=== PATIENT | male | born 1950 | race Caucasian/White ===

== ENCOUNTER 2020-01-10 12:57 | Inpatient (IN) | payer MEDICARE, OTHER ==
[~2020-01-10] VITALS: Ht 172.7 cm; Wt 58.7 kg
[2020-01-10 17:05] VITALS: BP 112/72
[2020-01-10] MEDS ORDERED: CHOL10002 PO (17:57)
[2020-01-10] MEDS ORDERED: PYRI200T10 PO (17:57)
[2020-01-10] MEDS ORDERED: DONE10TA44 PO (17:57)
[2020-01-10] MEDS ORDERED: ATOR80TA PO (17:57)
[2020-01-10] MEDS ORDERED: EZET10TA15 PO (17:57)
[2020-01-10] MEDS ORDERED: ACET-73 PO (17:57)
[2020-01-10] MEDS ORDERED: POTA10CA43 PO (17:57)
[2020-01-10] MEDS ORDERED: MELA5TAB20 PO (17:57)
[2020-01-10] MEDS ORDERED: LOPE-206 PO (17:57)
[2020-01-10] MEDS ORDERED: ASPI-605 PO (17:57)
[2020-01-10] MEDS ORDERED: FESO4TAB PO (17:57)
[2020-01-10] MEDS ORDERED: DOXA4TAB3 PO (17:57)
[2020-01-10] MEDS ORDERED: ASCO500T10 PO (17:57)
[2020-01-10] MEDS ORDERED: HYDR30CR99 RC (17:57)
[2020-01-10] MEDS ORDERED: SACU1TAB4 PO (17:57)
[2020-01-10] MEDS ORDERED: PRIM250T32 PO ×2 (17:57)
[2020-01-10] MEDS ORDERED: CYAN-51 PO (17:57)
[2020-01-10] MEDS ORDERED: FURO20TA4 PO (17:57)
[2020-01-10] MEDS ORDERED: MELA3TAB41 PO (17:57)
[2020-01-10] MEDS ORDERED: FAMO-132 PO (17:57)
[2020-01-10] MEDS ORDERED: FOLI0.4T2 PO (17:57)
[2020-01-10] MEDS ORDERED: MEMANTINE HCL PO (17:57)
[2020-01-10] MEDS ORDERED: CARV12.52 PO (17:57)
[2020-01-10] MEDS ORDERED: AMLO10TA7 PO (17:57)
[2020-01-10] MEDS ORDERED: CLOP75TA33 PO (17:57)
[2020-01-10] MEDS ORDERED: PYRI50CA PO (17:57)
[2020-01-10] MEDS ORDERED: NABU750T2 PO (17:57)
[2020-01-10] MEDS ORDERED: SERT50TA PO (18:06)
[2020-01-10 20:34] VITALS: BP 130/72
[2020-01-10] MEDS: DONEPEZIL 10 MG TABLET PO SCH (21:35)
[2020-01-10] MEDS: ACETAMINOPHEN ES 500 MG TABLET PO PRN (21:35)
[2020-01-10] MEDS: AMLODIPINE 10 MG TABLET PO SCH (21:36)
[2020-01-10] MEDS: PRIMIDONE 250 MG TABLET PO SCH (21:39)
[2020-01-11] MEDS: ACETAMINOPHEN ES 500 MG TABLET PO PRN ×3 (05:28→21:34)
[2020-01-11 06:09] VITALS: BP 136/70
[2020-01-11] MEDS: PANTOPRAZOLE SODIUM 40 MG TABLET.DR PO SCH (06:49)
[2020-01-11 06:50] LABS: BASOPHILS % (AUTO) 0.4 % (0.0-2.0); EOSINOPHILS # (AUTO) 0.1 K/uL (0.0-0.7); EOSINOPHILS % (AUTO) 1.5 % (0.0-7.0); HEMOGLOBIN 9.7 g/dL (12.5-16.3); LYMPHOCYTES # (AUTO) 1.2 K/uL (20.0-40.0); LYMPHOCYTES % (AUTO) 15.7 % (20.5-51.5); MEAN CORPUSCULAR HEMOGLOBIN 32.7 uug (23.8-33.4); MEAN CORPUSCULAR HGB CONC 35 g/dL (32.5-36.3); MEAN CORPUSCULAR VOLUME 94.5 fL (73.0-96.2); MONOCYTES # (AUTO) 1.1 K/uL (2.0-10.0); MONOCYTES % (AUTO) 13.8 % (0.0-11.0); NEUTROPHILS # (AUTO) 5.4 K/uL (1.8-8.9); NEUTROPHILS % (AUTO) 68.6 % (38.5-71.5); PLATELET COUNT (AUTO) 192 K/uL (152-348); RED BLOOD CELL COUNT(AUTO) 2.97 MIL/uL (4.06-5.63); WHITE BLOOD COUNT (AUTO) 7.9 K/uL (3.6-10.2)
--- NOTE | 2020-01-11 06:56 | NUR ---
Received patient lying in bed and assisted patient to the restroom with walker. Ax0x2, nonverbal but follows commands. Patient has a communication book, is able to point to what he wants. no signs and symptoms of distress noted, no SOB noted, vitals signs WNL, afebrile. on RA oxygen saturation @96% Patient had BM x3, voided greater than 700 with urinal, and x2 incontinent pads. skin intact, surgical dressing changed, no drainage noted, picture taken and placed in chart. Spoke to his sister Maite, wanted to know which room he was in to send some things over, connected Maite to patient and she spoke to patient for a couple minutes. all needs attended to, patient kept clean dry and comfortable. all de medications administered and tolerated well, no aspiration precaution noted, take pills whole. Administered Tylenol for pain, noticed facial grimace, unable to determine how bad the pain is. Administered, effective, patient slept through the night with no complaints or sudden changes in status. Offered patient snacks and fluid, well hydrated through the night. Safety measure in place, bed locked and lowered, bed railsx2, bed alarm on, and call light and all personal items within patient reach. Will endorse report to next shift according, continue with plan of care.
[2020-01-11 06:59] LABS: BILIRUBIN,TOTAL 0.6 mg/dL (0.2-1.0); CREATININE 0.7 mg/dL (0.6-1.3); POTASSIUM 3.6 mmol/L (3.5-5.1); TOTAL PROTEIN, SERUM 6.2 g/dL (6.4-8.2)
[2020-01-11 08:00] VITALS: BP 107/60
[2020-01-11] MEDS: SERTRALINE HCL 50 MG TABLET PO SCH (10:21)
[2020-01-11] MEDS: ASCORBIC ACID 500 MG TABLET PO SCH ×2 (10:22→16:39)
[2020-01-11] MEDS: FUROSEMIDE 20 MG TABLET PO SCH (10:23)
[2020-01-11] MEDS: POTASSIUM CHLORIDE 8 MEQ TAB.PRT.SR PO SCH (10:23)
[2020-01-11] MEDS: CYANOCOBALAMIN 1,000 MCG TABLET PO SCH (10:23)
[2020-01-11] MEDS: ASPIRIN EC 81 MG TABLET.DR PO SCH (10:23)
[2020-01-11] MEDS: OXYBUTYNIN CHLORIDE 5 MG TABLET PO SCH ×2 (10:24→16:39)
[2020-01-11] MEDS: CHOLECALCIFEROL 1,000 UNIT TABLET PO SCH (10:24)
[2020-01-11] MEDS: FAMOTIDINE 20 MG TABLET PO SCH ×2 (10:25→16:39)
[2020-01-11] MEDS: CARVEDILOL 12.5 MG TABLET PO SCH ×2 (10:25→16:39)
[2020-01-11] MEDS: CLOPIDOGREL 75 MG TABLET PO SCH (10:25)
[2020-01-11] MEDS: PRIMIDONE 250 MG TABLET PO SCH ×2 (10:26→21:31)
[2020-01-11] MEDS: EZETIMIBE 10 MG TABLET PO SCH (10:26)
[2020-01-11] MEDS: FOLIC ACID 1 MG TABLET PO SCH (10:27)
[2020-01-11] MEDS: MEMANTINE HCL 10 MG TABLET PO SCH ×2 (10:27→16:39)
[2020-01-11] MEDS: HYDROCORTISONE 2.5 % RECTAL CREAM 28.35 GM TUBE RC SCH ×3 (10:28→16:40)
[2020-01-11] MEDS: PYRIDOXINE HCL 100 MG TABLET PO SCH (10:35)
--- NOTE | 2020-01-11 12:32 | NUR ---
LEFT WITH HIS SISTER AND HIS PRISON ADMINISTRATORS TO SEE IF WE CAN HAVE SOME ONE BRING IN THE ENTRESTO AND NAMBUTONE PER PHARMACY THESE MEDS ARE NONFORMULARY
[2020-01-11 16:23] VITALS: BP 115/64
[2020-01-11 19:49] VITALS: BP 123/61
[2020-01-11] MEDS: DONEPEZIL 10 MG TABLET PO SCH (21:31)
[2020-01-11] MEDS: ATORVASTATIN 40 MG TABLET PO SCH (21:31)
[2020-01-11] MEDS: AMLODIPINE 10 MG TABLET PO SCH (21:32)
[2020-01-12] MEDS: LORAZEPAM 0.5 MG TABLET PO PRN ×2 (02:24→08:00)
[2020-01-12 04:42] VITALS: BP 140/82
--- NOTE | 2020-01-12 05:37 | NUR ---
Received patient laying in bed. Ax0x2, nonverbal, follows commands. No signs and symptoms of distress noted, no SOB noted, vitals signs WNL, afebrile. on RA oxygen saturation @95% Patient keep getting out of bed multiple times through the night to use the restroom. Provided prune juice to relieve constipation. Spoke to his sister Maite, wanted to know how patient was doing. All needs attended to, patient kept clean dry and comfortable. all due medications administered and tolerated well, take pills whole. Administered Tylenol for pain, noticed facial grimace, unable to determine how bad the pain is. Administered, effective, patient slept poorly through the night got up out of bed every 20 min, administered Ativan PRN, effective for short period of time. No sudden changes in status. Offered patient snacks and fluid, well hydrated through the night. Safety measure in place, bed locked and lowered, bed railsx2, bed alarm on, and call light and all personal items within patient reach. Will endorse report to next shift according, continue with plan of care.
[2020-01-12] MEDS: PANTOPRAZOLE SODIUM 40 MG TABLET.DR PO SCH (06:16)
[2020-01-12 08:00] VITALS: BP 135/70
[2020-01-12] MEDS: ACETAMINOPHEN ES 500 MG TABLET PO PRN ×2 (08:00→13:43)
[2020-01-12] MEDS: FUROSEMIDE 20 MG TABLET PO SCH (08:00)
[2020-01-12] MEDS: CHOLECALCIFEROL 1,000 UNIT TABLET PO SCH (08:01)
[2020-01-12] MEDS: EZETIMIBE 10 MG TABLET PO SCH (08:05)
[2020-01-12] MEDS: SERTRALINE HCL 50 MG TABLET PO SCH (08:05)
[2020-01-12] MEDS: FOLIC ACID 1 MG TABLET PO SCH (08:05)
[2020-01-12] MEDS: ASCORBIC ACID 500 MG TABLET PO SCH ×2 (08:05→17:01)
[2020-01-12] MEDS: MEMANTINE HCL 10 MG TABLET PO SCH ×2 (08:05→17:02)
[2020-01-12] MEDS: OXYBUTYNIN CHLORIDE 5 MG TABLET PO SCH ×2 (08:06→17:02)
[2020-01-12] MEDS: POTASSIUM CHLORIDE 8 MEQ TAB.PRT.SR PO SCH (08:06)
[2020-01-12] MEDS: CLOPIDOGREL 75 MG TABLET PO SCH (08:06)
[2020-01-12] MEDS: CARVEDILOL 12.5 MG TABLET PO SCH ×2 (08:07→17:02)
[2020-01-12] MEDS: FAMOTIDINE 20 MG TABLET PO SCH ×2 (08:07→17:02)
[2020-01-12] MEDS: ASPIRIN EC 81 MG TABLET.DR PO SCH (08:07)
[2020-01-12] MEDS: CYANOCOBALAMIN 1,000 MCG TABLET PO SCH (08:08)
[2020-01-12] MEDS: PYRIDOXINE HCL 100 MG TABLET PO SCH (08:08)
[2020-01-12] MEDS: PRIMIDONE 250 MG TABLET PO SCH ×2 (08:11→20:44)
[2020-01-12] MEDS: HYDROCORTISONE 2.5 % RECTAL CREAM 28.35 GM TUBE RC SCH ×3 (08:13→17:02)
--- NOTE | 2020-01-12 10:00 | NUR ---
JUST BACK FROM THERAPY VERY IMPULSIVE. WILL NOT STAY IN THE BED OR CHAIR. WANTS TO GO TO THE BATHROOM APPROX Q30 MIN. LIES IN BED TRIES TO DIG THE FECES OUT WHEN NOT GOING TO THE TOILET. GETS OOB ON HIS OWN HAS TO BE WATCHED CLOSELY. BED ALARM ACTIVATED
--- NOTE | 2020-01-12 14:39 | NUR ---
SPOKE WITH FANNY AT [facility] WHERE HE LIVES SHE SAYS SHE WILL HAVE THE NURSE CALL REGARDING DELIVERING THE MEDICATIONS NEEDED FROM HOME TO THE HOSPITAL. I SPOKE WITH THE NURSE CHASE AND SHE SAYS SHE WILL HAVE SOMEONE FROM THE HOME WHERE HE LIVES MAKE ARRANGEMENTS FOR THE MEDS TO BE DROPPED OFF HERE.
[2020-01-12 15:56] VITALS: BP 131/70
--- NOTE | 2020-01-12 19:54 | NUR ---
Patient received in bed, very drowsy and tired. No sign and symptoms of distress noted. Safety measure in place, call light and personal items within patient reach. SCD pumps on, BLE with pillow. Continue to monitor through the night
[2020-01-12 20:19] VITALS: BP 117/60
[2020-01-12] MEDS: ATORVASTATIN 40 MG TABLET PO SCH (20:43)
[2020-01-12] MEDS: AMLODIPINE 10 MG TABLET PO SCH (20:43)
[2020-01-12] MEDS: DONEPEZIL 10 MG TABLET PO SCH (20:43)
--- NOTE | 2020-01-13 05:31 | NUR ---
no signs and symptoms of distress noted, no SOB noted, vitals signs WNL, afebrile. on RA oxygen saturation @96% Patient BM multiple times in small amounts. Constantly getting out of bed to use the restroom. Kept clean dry and comfortable. Skin intact, surgical dressing changed, no drainage noted. Spoke to his sister Maite, wanted to kfollow up with the medications that the pharmacy received. All needs attended to. all dUe medications administered and tolerated well, no aspiration precaution noted, take pills whole. Slept for a couple hours with no complaints or sudden changes in status. Offered patient snacks and fluid, well hydrated through the night. Safety measure in place, bed locked and lowered, bed railsx2, bed alarm on, and call light and all personal items within patient reach. Will endorse report to next shift according, continue with plan of care.
[2020-01-13 05:32] VITALS: BP 132/75
[2020-01-13] MEDS: PANTOPRAZOLE SODIUM 40 MG TABLET.DR PO SCH (06:00)
[2020-01-13] MEDS: ASPIRIN EC 81 MG TABLET.DR PO SCH (08:20)
[2020-01-13] MEDS: CLOPIDOGREL 75 MG TABLET PO SCH (08:20)
[2020-01-13] MEDS: CHOLECALCIFEROL 1,000 UNIT TABLET PO SCH (08:20)
[2020-01-13] MEDS: FAMOTIDINE 20 MG TABLET PO SCH ×2 (08:20→17:24)
[2020-01-13] MEDS: FOLIC ACID 1 MG TABLET PO SCH (08:20)
[2020-01-13] MEDS: OXYBUTYNIN CHLORIDE 5 MG TABLET PO SCH ×2 (08:20→17:24)
[2020-01-13] MEDS: ASCORBIC ACID 500 MG TABLET PO SCH ×2 (08:21→17:24)
[2020-01-13] MEDS: SERTRALINE HCL 50 MG TABLET PO SCH (08:21)
[2020-01-13] MEDS: MEMANTINE HCL 10 MG TABLET PO SCH ×2 (08:21→17:24)
[2020-01-13] MEDS: CARVEDILOL 12.5 MG TABLET PO SCH ×2 (08:21→17:28)
[2020-01-13] MEDS: CYANOCOBALAMIN 1,000 MCG TABLET PO SCH (08:24)
[2020-01-13] MEDS: PRIMIDONE 250 MG TABLET PO SCH ×2 (08:25→20:18)
[2020-01-13] MEDS: EZETIMIBE 10 MG TABLET PO SCH (08:25)
[2020-01-13] MEDS: PYRIDOXINE HCL 100 MG TABLET PO SCH (08:26)
[2020-01-13] MEDS: POTASSIUM CHLORIDE 8 MEQ TAB.PRT.SR PO SCH (08:26)
[2020-01-13] MEDS: HYDROCORTISONE 2.5 % RECTAL CREAM 28.35 GM TUBE RC SCH ×3 (08:29→17:29)
[2020-01-13] MEDS: FUROSEMIDE 20 MG TABLET PO SCH (08:33)
[2020-01-13 08:51] VITALS: BP 135/71
[2020-01-13] MEDS: ACETAMINOPHEN ES 500 MG TABLET PO PRN (09:55)
--- NOTE | 2020-01-13 14:03 | NUR ---
INDIVIDUALIZED PLAN OF CARE
[2020-01-13 16:05] VITALS: BP 143/59
--- NOTE | 2020-01-13 18:11 | NUR ---
Patient alert, able to follow commands,non verbal , able to communicate through gestures and pictures, no distress noted , in room air ,compliant with medications. constantly getting out of bed with assist to use bathroom for BM and voiding, able to use walker with assist. Denies pain or no facial grimaces of discomfort, dressing change on left hip , gary intact, no drainage noted, no s/s of infection, keep area clean and dry. Safety measures in place.Reinforced teaching to use call light for assistance. Participated with therapy tolerated well .All needs attended and anticipated.
--- NOTE | 2020-01-13 19:45 | NUR ---
Sleeping comfortably during initial rounds. No s/s of respiratory distress. Safety measures and fall precaution maintained. Continue care as planned
--- NOTE | 2020-01-13 19:55 | NUR ---
Awake, up, and trying to ambulate independently to the bathroom. Non verbal but able to make needs known thru body language/gestures. Assisted to the bathroom. Had 1 BM. Good adriano care/skin care rendered. Safely assisted back to bed. No complaint presented.
[2020-01-13 20:00] VITALS: BP 114/57
[2020-01-13] MEDS: DONEPEZIL 10 MG TABLET PO SCH (20:18)
[2020-01-13] MEDS: ATORVASTATIN 40 MG TABLET PO SCH (20:18)
[2020-01-13] MEDS: AMLODIPINE 10 MG TABLET PO SCH (20:19)
[2020-01-13] MEDS: LORAZEPAM 0.5 MG TABLET PO PRN (21:24)
[2020-01-14 04:00] VITALS: BP 121/71
[2020-01-14] MEDS: PANTOPRAZOLE SODIUM 40 MG TABLET.DR PO SCH (06:11)
--- NOTE | 2020-01-14 06:24 | NUR ---
Shift End Report: Slept good after Ativan given as ordered and needed. No further complaint presented. No fall/injury. All need attended and met. No significant event reported all night. Continue current rehab plan of care. VS stable.
[2020-01-14 08:00] VITALS: BP 131/73
[2020-01-14] MEDS: OXYBUTYNIN CHLORIDE 5 MG TABLET PO SCH ×2 (08:43→16:30)
[2020-01-14] MEDS: SERTRALINE HCL 50 MG TABLET PO SCH (08:44)
[2020-01-14] MEDS: CYANOCOBALAMIN 1,000 MCG TABLET PO SCH (08:44)
[2020-01-14] MEDS: POTASSIUM CHLORIDE 8 MEQ TAB.PRT.SR PO SCH (08:45)
[2020-01-14] MEDS: FAMOTIDINE 20 MG TABLET PO SCH ×2 (08:45→16:30)
[2020-01-14] MEDS: CHOLECALCIFEROL 1,000 UNIT TABLET PO SCH (08:45)
[2020-01-14] MEDS: CLOPIDOGREL 75 MG TABLET PO SCH (08:46)
[2020-01-14] MEDS: ASCORBIC ACID 500 MG TABLET PO SCH ×2 (08:46→16:31)
[2020-01-14] MEDS: PRIMIDONE 250 MG TABLET PO SCH ×2 (08:46→20:52)
[2020-01-14] MEDS: EZETIMIBE 10 MG TABLET PO SCH (08:46)
[2020-01-14] MEDS: ASPIRIN EC 81 MG TABLET.DR PO SCH (08:47)
[2020-01-14] MEDS: PYRIDOXINE HCL 100 MG TABLET PO SCH (08:47)
[2020-01-14] MEDS: FOLIC ACID 1 MG TABLET PO SCH (08:47)
[2020-01-14] MEDS: MEMANTINE HCL 10 MG TABLET PO SCH ×2 (08:47→16:31)
[2020-01-14] MEDS: FUROSEMIDE 20 MG TABLET PO SCH (08:47)
[2020-01-14] MEDS: HYDROCORTISONE 2.5 % RECTAL CREAM 28.35 GM TUBE RC SCH ×3 (08:48→16:32)
[2020-01-14] MEDS: CARVEDILOL 12.5 MG TABLET PO SCH ×3 (09:25→16:34)
[2020-01-14] MEDS: NABUMETONE 500 MG PO SCH (10:11)
[2020-01-14] MEDS: ENTRESTO PO SCH ×2 (10:11→16:31)
[2020-01-14 14:06] VITALS: BP 107/57
--- NOTE | 2020-01-14 17:27 | NUR ---
patient is alert, oriented x3, no sob, resp even nonlabored, skin warm and dry to touch, no distress noted, noted with multiple loose watery BMs, per dr carter continue to monitor, morning dose of coreg is administered, however evening dose returned to pexis. pharmacist jason made aware about dose returned and problem in pexis for that medication drawer.
--- NOTE | 2020-01-14 19:21 | NUR ---
PATIENT IS IN HIS ROOM, IN HIS BED, NO DISTRESS NOTED, ENDORSED ACCORDINGLY
[2020-01-14 20:05] VITALS: BP 105/57
[2020-01-14] MEDS: ATORVASTATIN 40 MG TABLET PO SCH (20:52)
[2020-01-14] MEDS: ACETAMINOPHEN ES 500 MG TABLET PO PRN (20:52)
[2020-01-14] MEDS: AMLODIPINE 10 MG TABLET PO SCH (20:53)
[2020-01-14] MEDS: DONEPEZIL 10 MG TABLET PO SCH (20:54)
--- NOTE | 2020-01-15 04:54 | NUR ---
no signs and symptoms of distress noted, no SOB noted, vitals signs WNL, Constantly getting out of bed to use the restroom. Kept clean dry and comfortable. Skin intact, surgical dressing changed, no drainage noted. Family dropped off items for patients, picked it up from the lobby and brought to patients room. All needs attended to. All due medications administered and tolerated well. Offered patient snacks and fluid, well hydrated through the night. Safety measure in place, bed locked and lowered, bed railsx2, bed alarm on, and call light and all personal items within patient reach. Will endorse report to next shift according, continue with plan of care.
[2020-01-15] MEDS: PANTOPRAZOLE SODIUM 40 MG TABLET.DR PO SCH (06:05)
[2020-01-15 06:18] VITALS: BP 132/72
[2020-01-15 07:53] VITALS: BP 130/75
[2020-01-15] MEDS: EZETIMIBE 10 MG TABLET PO SCH (09:06)
[2020-01-15] MEDS: POTASSIUM CHLORIDE 8 MEQ TAB.PRT.SR PO SCH (09:06)
[2020-01-15] MEDS: CHOLECALCIFEROL 1,000 UNIT TABLET PO SCH (09:06)
[2020-01-15] MEDS: OXYBUTYNIN CHLORIDE 5 MG TABLET PO SCH ×2 (09:07→16:48)
[2020-01-15] MEDS: SERTRALINE HCL 50 MG TABLET PO SCH (09:07)
[2020-01-15] MEDS: FOLIC ACID 1 MG TABLET PO SCH (09:07)
[2020-01-15] MEDS: ASPIRIN EC 81 MG TABLET.DR PO SCH (09:07)
[2020-01-15] MEDS: MEMANTINE HCL 10 MG TABLET PO SCH ×2 (09:07→16:48)
[2020-01-15] MEDS: CYANOCOBALAMIN 1,000 MCG TABLET PO SCH (09:07)
[2020-01-15] MEDS: FAMOTIDINE 20 MG TABLET PO SCH ×2 (09:08→16:48)
[2020-01-15] MEDS: ASCORBIC ACID 500 MG TABLET PO SCH ×2 (09:08→16:48)
[2020-01-15] MEDS: CLOPIDOGREL 75 MG TABLET PO SCH (09:08)
[2020-01-15] MEDS: PRIMIDONE 250 MG TABLET PO SCH ×2 (09:13→20:48)
[2020-01-15] MEDS: ENTRESTO PO SCH ×2 (09:14→16:48)
[2020-01-15] MEDS: FUROSEMIDE 20 MG TABLET PO SCH (09:14)
[2020-01-15] MEDS: CARVEDILOL 12.5 MG TABLET PO SCH ×2 (09:14→16:48)
[2020-01-15] MEDS: NABUMETONE 500 MG PO SCH (09:14)
[2020-01-15] MEDS: PYRIDOXINE HCL 100 MG TABLET PO SCH (09:14)
[2020-01-15] MEDS: HYDROCORTISONE 2.5 % RECTAL CREAM 28.35 GM TUBE RC SCH ×3 (09:15→16:50)
--- NOTE | 2020-01-15 10:30 | NUR ---
Received patient in room and awake; Patient is AAO X1-2, able to communicate with gestures and picutres. NO acute distress noted. NO complains of pain. Vital signs stable for patient. All due meds administered as ordered and scheduled and tolerated well. Patient on PT/OT therapy. Ambulatory with a walker. BRP. Patient noted trying to go to bathroom by self, reminded patient to call for help. Bed alarm on for safety. Needs attended and met, safety measures in place, call light left within easy reach and will continue with care.
--- NOTE | 2020-01-15 13:15 | NUR ---
Dressing on the Left hip dry and intact. Skin noted with discoloration. No c/o pain on site. will continue to monitor.
[2020-01-15 16:08] VITALS: BP 101/64
--- NOTE | 2020-01-15 19:15 | NUR ---
Patient in bed and doing activities at this moment. NO SOB or any acute distress noted. Due evening meds administered and tolerated. Patient is with min assist for adls and care but needs constant monitoring. All other needs attended, safety measures in place, bed alarm on at all times, call light left at bed side and will continue with care.
[2020-01-15 19:47] VITALS: BP 126/73
[2020-01-15] MEDS: AMLODIPINE 10 MG TABLET PO SCH (20:48)
[2020-01-15] MEDS: DONEPEZIL 10 MG TABLET PO SCH (20:48)
[2020-01-15] MEDS: ACETAMINOPHEN ES 500 MG TABLET PO PRN (20:48)
[2020-01-15] MEDS: ATORVASTATIN 40 MG TABLET PO SCH (20:49)
[2020-01-16 04:40] VITALS: BP 127/69
--- NOTE | 2020-01-16 05:29 | NUR ---
Patient recieved in room doing activities in bed. No signs and symptoms of distress noted, no SOB noted, vitals signs WNL. Used the bathroom multiple times throughout the night. Kept clean dry and comfortable. Skin intact, surgical dressing changed, no drainage noted. All needs attended to. All due medications administered and tolerated well. Offered patient snacks and fluid, well hydrated through the night. Safety measure in place, bed locked and lowered, bed railsx2, bed alarm on, and call light and all personal items within patient reach. Will endorse report to next shift according, continue with plan of care.
[2020-01-16] MEDS: PANTOPRAZOLE SODIUM 40 MG TABLET.DR PO SCH (06:19)
[2020-01-16 06:22] LABS: BASOPHILS # (AUTO) 0.1 K/uL (0.0-8.0); BASOPHILS % (AUTO) 0.7 % (0.0-2.0); EOSINOPHILS # (AUTO) 0.2 K/uL (0.0-0.7); EOSINOPHILS % (AUTO) 2.2 % (0.0-7.0); HEMATOCRIT 29.8 % (36.7-47.1); HEMOGLOBIN 10.5 g/dL (12.5-16.3); LYMPHOCYTES # (AUTO) 2.1 K/uL (20.0-40.0); LYMPHOCYTES % (AUTO) 25.8 % (20.5-51.5); MEAN CORPUSCULAR HEMOGLOBIN 33.3 uug (23.8-33.4); MEAN CORPUSCULAR HGB CONC 35 g/dL (32.5-36.3); MEAN CORPUSCULAR VOLUME 94.5 fL (73.0-96.2); MONOCYTES # (AUTO) 0.9 K/uL (2.0-10.0); NEUTROPHILS # (AUTO) 4.8 K/uL (1.8-8.9); NEUTROPHILS % (AUTO) 60.3 % (38.5-71.5); PLATELET COUNT (AUTO) 417 K/uL (152-348); RED BLOOD CELL COUNT(AUTO) 3.15 MIL/uL (4.06-5.63); WHITE BLOOD COUNT (AUTO) 8.1 K/uL (3.6-10.2)
[2020-01-16 06:45] LABS: THYROID STIMULATING HORMONE 3.749 mIU/mL (0.358-3.740)
[2020-01-16 07:02] LABS: BILIRUBIN,TOTAL 0.7 mg/dL (0.2-1.0); CREATININE 0.8 mg/dL (0.6-1.3); PHOSPHOROUS 3.6 mg/dL (2.5-4.9); POTASSIUM 3.7 mmol/L (3.5-5.1); TOTAL PROTEIN, SERUM 6.2 g/dL (6.4-8.2)
[2020-01-16 07:53] VITALS: BP 128/70
[2020-01-16] MEDS: FAMOTIDINE 20 MG TABLET PO SCH ×2 (08:42→16:44)
[2020-01-16] MEDS: EZETIMIBE 10 MG TABLET PO SCH (08:42)
[2020-01-16] MEDS: CLOPIDOGREL 75 MG TABLET PO SCH (08:42)
[2020-01-16] MEDS: CHOLECALCIFEROL 1,000 UNIT TABLET PO SCH (08:42)
[2020-01-16] MEDS: ASCORBIC ACID 500 MG TABLET PO SCH ×2 (08:42→16:44)
[2020-01-16] MEDS: ASPIRIN EC 81 MG TABLET.DR PO SCH (08:42)
[2020-01-16] MEDS: POTASSIUM CHLORIDE 8 MEQ TAB.PRT.SR PO SCH (08:42)
[2020-01-16] MEDS: SERTRALINE HCL 50 MG TABLET PO SCH (08:42)
[2020-01-16] MEDS: MEMANTINE HCL 10 MG TABLET PO SCH ×2 (08:42→16:44)
[2020-01-16] MEDS: OXYBUTYNIN CHLORIDE 5 MG TABLET PO SCH ×2 (08:42→16:44)
[2020-01-16] MEDS: FOLIC ACID 1 MG TABLET PO SCH (08:43)
[2020-01-16] MEDS: FUROSEMIDE 20 MG TABLET PO SCH (08:44)
[2020-01-16] MEDS: CYANOCOBALAMIN 1,000 MCG TABLET PO SCH (08:44)
[2020-01-16] MEDS: ENTRESTO PO SCH ×2 (08:45→17:30)
[2020-01-16] MEDS: PYRIDOXINE HCL 100 MG TABLET PO SCH (08:46)
[2020-01-16] MEDS: PRIMIDONE 250 MG TABLET PO SCH ×2 (08:46→20:22)
[2020-01-16] MEDS: NABUMETONE 500 MG PO SCH (08:47)
[2020-01-16] MEDS: HYDROCORTISONE 2.5 % RECTAL CREAM 28.35 GM TUBE RC SCH ×3 (08:48→16:45)
[2020-01-16] MEDS: CARVEDILOL 12.5 MG TABLET PO SCH ×2 (08:55→16:45)
[2020-01-16 15:25] VITALS: BP 107/62
--- NOTE | 2020-01-16 19:45 | NUR ---
Awake, sitting in bed. busy doing some craft Smiled as he waived hands for greeting. No s/s of respiratory distress. Denies any pain/discomforts at this time. Safety measures nad fall prevention maintained. Continue care as planned.
[2020-01-16 20:00] VITALS: BP 112/57
[2020-01-16] MEDS: ATORVASTATIN 40 MG TABLET PO SCH (20:22)
[2020-01-16] MEDS: AMLODIPINE 10 MG TABLET PO SCH (20:23)
[2020-01-16] MEDS: DONEPEZIL 10 MG TABLET PO SCH (20:23)
[2020-01-17 04:00] VITALS: BP 124/71
--- NOTE | 2020-01-17 05:37 | NUR ---
Shift End Report: Slept in between care. Vs stable. Able to get up by himself to go to the bathroom using FWW. Requires minimal assist/hand held assist on ambulation due to unsteady gait. Had frequent BM but in small soft form brown. Good adriano care/skin care provided. All needs attended and met. Cooperative with care. No significant event reported all night. Continue current rehab plan of care.
[2020-01-17] MEDS: PANTOPRAZOLE SODIUM 40 MG TABLET.DR PO SCH (05:51)
[2020-01-17] MEDS: FUROSEMIDE 20 MG TABLET PO SCH (08:45)
[2020-01-17] MEDS: PRIMIDONE 250 MG TABLET PO SCH ×2 (08:45→20:27)
[2020-01-17] MEDS: POTASSIUM CHLORIDE 8 MEQ TAB.PRT.SR PO SCH (08:45)
[2020-01-17] MEDS: CHOLECALCIFEROL 1,000 UNIT TABLET PO SCH (08:45)
[2020-01-17] MEDS: PYRIDOXINE HCL 100 MG TABLET PO SCH (08:46)
[2020-01-17] MEDS: ASPIRIN EC 81 MG TABLET.DR PO SCH (08:46)
[2020-01-17] MEDS: CYANOCOBALAMIN 1,000 MCG TABLET PO SCH (08:46)
[2020-01-17] MEDS: CLOPIDOGREL 75 MG TABLET PO SCH (08:46)
[2020-01-17] MEDS: EZETIMIBE 10 MG TABLET PO SCH (08:46)
[2020-01-17] MEDS: FOLIC ACID 1 MG TABLET PO SCH (08:47)
[2020-01-17] MEDS: NABUMETONE 500 MG PO SCH ×4 (08:47→19:09)
[2020-01-17] MEDS: OXYBUTYNIN CHLORIDE 5 MG TABLET PO SCH ×2 (08:47→16:10)
[2020-01-17] MEDS: MEMANTINE HCL 10 MG TABLET PO SCH ×2 (08:47→16:10)
[2020-01-17] MEDS: ASCORBIC ACID 500 MG TABLET PO SCH ×2 (08:47→16:10)
[2020-01-17] MEDS: SERTRALINE HCL 50 MG TABLET PO SCH (08:47)
[2020-01-17] MEDS: HYDROCORTISONE 2.5 % RECTAL CREAM 28.35 GM TUBE RC SCH ×3 (08:48→16:14)
[2020-01-17] MEDS: ENTRESTO PO SCH ×3 (08:48→19:16)
[2020-01-17] MEDS: FAMOTIDINE 20 MG TABLET PO SCH ×2 (08:48→16:10)
[2020-01-17] MEDS: CARVEDILOL 12.5 MG TABLET PO SCH ×2 (08:50→16:11)
[2020-01-17 08:56] VITALS: BP 129/72
--- NOTE | 2020-01-17 14:56 | NUR ---
patient is alert, awake, no sob, aphasic, able to communicate with pictures or written communication, no distress noted, forgets to call for assistant professor of psychology for supervision to the bathroom, bed alarm is on, supervised with adls, patient is high functional with adls, needs attended timely
[2020-01-17 16:04] VITALS: BP_SYST 118; BP_SYST 98; BP_DIAS 65; BP_DIAS 68
--- NOTE | 2020-01-17 19:19 | NUR ---
ENTRESTO ADMINISTERED NOW RECEIVED FROM PHARMACY, HOWEVER NABUMETONE WAS ADMINISTERED ONLY IN THE MORNING SCHEDULED
--- NOTE | 2020-01-17 19:33 | NUR ---
Awake, alert, sitting at the edge of bed, busy doing some art work. smiled when greeted during initial rounds. No respiratory distress noted. Denies pain/discomforts at this time. Safety measures and fall prevention maintained.Continue care as planned.
[2020-01-17] MEDS: DONEPEZIL 10 MG TABLET PO SCH (20:23)
[2020-01-17] MEDS: AMLODIPINE 10 MG TABLET PO SCH (20:23)
[2020-01-17] MEDS: ATORVASTATIN 40 MG TABLET PO SCH (20:24)
[2020-01-17 20:30] VITALS: BP 125/61
[2020-01-18 04:08] VITALS: BP 139/68
--- NOTE | 2020-01-18 05:24 | NUR ---
Shift End report: Slept in between care. Constantly going to the bathroom with minimal assist.Had small soft, form, brown BM every bathroom use. No complaint presented all night. All needs attended and met. Good adriano care and skin care rendered after each elimination.No fall/injury. No significant changes reported. Continue current rehab plan of care.
[2020-01-18] MEDS: PANTOPRAZOLE SODIUM 40 MG TABLET.DR PO SCH (06:21)
[2020-01-18 08:00] VITALS: BP 131/77
--- NOTE | 2020-01-18 08:30 | NUR ---
ASSISTED TO AND FROM THE BATHROOM WITH CONTACT GUARD ASSISTANCE VOIDED AND BTB PATIENT IS ALERT NON VERBAL BUT FOLLOWS COMMAND BED ALARM IS IN USE BECAUSE PATIENT TENDS TO FORGET TO CALL FOR HELP AT [facility] FOR FALLS RELATED TO POOR SAFETY AWARENESS MADE COMFORTABLE WILL CONTINUE TO OBSERVE.
[2020-01-18] MEDS: CYANOCOBALAMIN 1,000 MCG TABLET PO SCH (08:58)
[2020-01-18] MEDS: FAMOTIDINE 20 MG TABLET PO SCH ×2 (08:58→16:26)
[2020-01-18] MEDS: EZETIMIBE 10 MG TABLET PO SCH (08:59)
[2020-01-18] MEDS: FOLIC ACID 1 MG TABLET PO SCH (08:59)
[2020-01-18] MEDS: SERTRALINE HCL 50 MG TABLET PO SCH (08:59)
[2020-01-18] MEDS: MEMANTINE HCL 10 MG TABLET PO SCH ×2 (09:00→16:26)
[2020-01-18] MEDS: POTASSIUM CHLORIDE 8 MEQ TAB.PRT.SR PO SCH (09:00)
[2020-01-18] MEDS: OXYBUTYNIN CHLORIDE 5 MG TABLET PO SCH ×2 (09:00→16:26)
[2020-01-18] MEDS: ASPIRIN EC 81 MG TABLET.DR PO SCH (09:00)
[2020-01-18] MEDS: CLOPIDOGREL 75 MG TABLET PO SCH (09:00)
[2020-01-18] MEDS: ENTRESTO PO SCH ×2 (09:00→17:13)
[2020-01-18] MEDS: FUROSEMIDE 20 MG TABLET PO SCH (09:00)
[2020-01-18] MEDS: ASCORBIC ACID 500 MG TABLET PO SCH ×2 (09:00→16:26)
[2020-01-18] MEDS: PRIMIDONE 250 MG TABLET PO SCH ×2 (09:01→20:38)
[2020-01-18] MEDS: PYRIDOXINE HCL 100 MG TABLET PO SCH (09:01)
[2020-01-18] MEDS: NABUMETONE 500 MG PO SCH (09:02)
[2020-01-18] MEDS: HYDROCORTISONE 2.5 % RECTAL CREAM 28.35 GM TUBE RC SCH ×3 (09:04→16:27)
[2020-01-18] MEDS: CARVEDILOL 12.5 MG TABLET PO SCH ×2 (09:05→16:27)
[2020-01-18] MEDS: CHOLECALCIFEROL 1,000 UNIT TABLET PO SCH (09:07)
--- NOTE | 2020-01-18 09:59 | NUR ---
UNABLE TO GIVE ENTRESTO ORDERED CALLED THE PHARMACIST STATED ITS NON FORMULARY AND THAT THEY RAN OUT OF THE MEDICATION THAT WAS BROUGHT BY THE PATIENT STATED TO CALL AND SEE IF HIS FACILITY COULD SEND SOME MORE
--- NOTE | 2020-01-18 10:26 | NUR ---
INTERDISCIPLINARY TEAM CONFERENCE
--- NOTE | 2020-01-18 12:47 | NUR ---
CALLED [facility] WE NEED SOME MORE ENTRESTO PER THE PHARMACY THE SUPPLY THAT THE PATIENT BROUGHT IN RAN OUT AND ITS NON FORMULARY WAS UNABLE TO LEAVE ANY MESSAGE SO I CALLED PATIENTS SISTER MARCO AND HE STATED THAT HE DOES NOT KNOW ANYTHING ABOUT THE PATIENTS MEDICATIONS AND GAVE ME THE PHONE NUMBER OF THE PATIENTS WEEKEND NURSE CHASE [phone] CALLED AND SPOKE WITH HER AND SHE STATED WILL HAVE SOMEONE BRING SOME ENTRESTO THIS AFTERNOON.
--- NOTE | 2020-01-18 16:00 | NUR ---
2 BUBBLE PACKS OF ENTRESTO TOTALLING 42 PILLS RECEIVED FROM THE [facility] AND SENT TO [facility] FOR VERIFICATION.
[2020-01-18 16:07] VITALS: BP 117/69
--- NOTE | 2020-01-18 18:11 | NUR ---
PATIENT IN HIS ROOM SITTING ON HIS BED DOING HIS ART AND CRAFT ASSISTED TO THE BATHROOM VOIDING WELL IN NO DISTRESS AT THIS TIME
--- NOTE | 2020-01-18 19:45 | NUR ---
patient in his room doing some arts and crafts. Patient continent of bladder, assisted with toileting, uses fww. Patient has no complain of pain at this time. cont to monitor.
[2020-01-18 19:53] VITALS: BP 102/59
[2020-01-18] MEDS: ATORVASTATIN 10 MG TABLET PO SCH (20:37)
[2020-01-18] MEDS: DONEPEZIL 10 MG TABLET PO SCH (20:38)
[2020-01-18] MEDS: AMLODIPINE 10 MG TABLET PO SCH (20:40)
[2020-01-18] MEDS: ACETAMINOPHEN ES 500 MG TABLET PO PRN (22:40)
[2020-01-19 05:25] VITALS: BP 130/69
[2020-01-19] MEDS: PANTOPRAZOLE SODIUM 40 MG TABLET.DR PO SCH (06:02)
--- NOTE | 2020-01-19 06:16 | NUR ---
Patient awake, no complain of pain. Patient assisted with toileting, using fww. Patient left hip dressing intact, cont to monitor.
[2020-01-19 08:00] VITALS: BP 124/70
[2020-01-19] MEDS: CHOLECALCIFEROL 1,000 UNIT TABLET PO SCH (08:39)
[2020-01-19] MEDS: CYANOCOBALAMIN 1,000 MCG TABLET PO SCH (08:39)
[2020-01-19] MEDS: OXYBUTYNIN CHLORIDE 5 MG TABLET PO SCH ×2 (08:39→16:56)
[2020-01-19] MEDS: FUROSEMIDE 20 MG TABLET PO SCH (08:40)
[2020-01-19] MEDS: FOLIC ACID 1 MG TABLET PO SCH (08:40)
[2020-01-19] MEDS: CLOPIDOGREL 75 MG TABLET PO SCH (08:40)
[2020-01-19] MEDS: ASCORBIC ACID 500 MG TABLET PO SCH ×2 (08:41→16:54)
[2020-01-19] MEDS: ASPIRIN EC 81 MG TABLET.DR PO SCH (08:41)
[2020-01-19] MEDS: MEMANTINE HCL 10 MG TABLET PO SCH ×2 (08:41→16:56)
[2020-01-19] MEDS: EZETIMIBE 10 MG TABLET PO SCH (08:41)
[2020-01-19] MEDS: CARVEDILOL 12.5 MG TABLET PO SCH ×2 (08:41→17:00)
[2020-01-19] MEDS: FAMOTIDINE 20 MG TABLET PO SCH ×2 (08:41→16:54)
[2020-01-19] MEDS: ACETAMINOPHEN ES 500 MG TABLET PO PRN (08:42)
[2020-01-19] MEDS: ENTRESTO PO SCH ×2 (09:36→17:00)
[2020-01-19] MEDS: NABUMETONE 500 MG PO SCH (09:36)
[2020-01-19] MEDS: PRIMIDONE 250 MG TABLET PO SCH ×2 (09:36→20:21)
[2020-01-19] MEDS: PYRIDOXINE HCL 100 MG TABLET PO SCH (09:37)
[2020-01-19] MEDS: POTASSIUM CHLORIDE 8 MEQ TAB.PRT.SR PO SCH (09:37)
[2020-01-19] MEDS: SERTRALINE HCL 50 MG TABLET PO SCH (09:37)
[2020-01-19] MEDS: HYDROCORTISONE 2.5 % RECTAL CREAM 28.35 GM TUBE RC SCH ×3 (09:41→16:56)
--- NOTE | 2020-01-19 11:22 | NUR ---
Patient alert but speech garbled, all needs attended and anticipated. Patient seen by PT tolerate well, assisted with toileting, tx cont on rashes on adriano/buttocks area. cont to monitor.
[2020-01-19 16:00] VITALS: BP 97/64
--- NOTE | 2020-01-19 19:20 | NUR ---
Patient received in bed, doing some arts and craft. Alert but speech is garbled. Patient has no s/s of acute distress or pain at this time. Vitals stable, on room air saturating WNL. Patient was assisted to the bathroom. Safety measures in place. Personal belongings and call light within reach. Will continue with the plan of care.
[2020-01-19 20:16] VITALS: BP 124/58
[2020-01-19] MEDS: ATORVASTATIN 10 MG TABLET PO SCH (20:21)
[2020-01-19] MEDS: DONEPEZIL 10 MG TABLET PO SCH (20:21)
[2020-01-19] MEDS: AMLODIPINE 10 MG TABLET PO SCH (20:25)
[2020-01-20 06:37] VITALS: BP 122/68
[2020-01-20] MEDS: PANTOPRAZOLE SODIUM 40 MG TABLET.DR PO SCH (06:39)
--- NOTE | 2020-01-20 06:50 | NUR ---
Patient slept intermittently throughout the night. Patient has no s/s of acute distress or pain at this time. VS stable, afebrile. Surgical dressing on L Hip is dry, intact and has no s/s of infection noted. Comfort care and needs attended. Fall precaution maintained. Safety measures in place. Bed low and locked in position. Call light within reach. Will endorse to the oncoming nurse accordingly.
[2020-01-20 08:00] VITALS: BP_SYST 112; BP_SYST 117; BP_DIAS 7; BP_DIAS 70
[2020-01-20] MEDS: MEMANTINE HCL 10 MG TABLET PO SCH ×2 (10:28→18:02)
[2020-01-20] MEDS: FAMOTIDINE 20 MG TABLET PO SCH ×2 (10:28→18:02)
[2020-01-20] MEDS: ASPIRIN EC 81 MG TABLET.DR PO SCH (10:28)
[2020-01-20] MEDS: CYANOCOBALAMIN 1,000 MCG TABLET PO SCH (10:29)
[2020-01-20] MEDS: SERTRALINE HCL 50 MG TABLET PO SCH (10:31)
[2020-01-20] MEDS: CLOPIDOGREL 75 MG TABLET PO SCH (10:33)
[2020-01-20] MEDS: CHOLECALCIFEROL 1,000 UNIT TABLET PO SCH (10:33)
[2020-01-20] MEDS: FUROSEMIDE 20 MG TABLET PO SCH (10:33)
[2020-01-20] MEDS: FOLIC ACID 1 MG TABLET PO SCH (10:33)
[2020-01-20] MEDS: POTASSIUM CHLORIDE 8 MEQ TAB.PRT.SR PO SCH (10:33)
[2020-01-20] MEDS: NABUMETONE 500 MG PO SCH (10:34)
[2020-01-20] MEDS: EZETIMIBE 10 MG TABLET PO SCH (10:34)
[2020-01-20] MEDS: ASCORBIC ACID 500 MG TABLET PO SCH ×2 (10:34→18:02)
[2020-01-20] MEDS: OXYBUTYNIN CHLORIDE 5 MG TABLET PO SCH ×2 (10:34→18:02)
[2020-01-20] MEDS: PRIMIDONE 250 MG TABLET PO SCH ×2 (10:35→21:32)
[2020-01-20] MEDS: PYRIDOXINE HCL 100 MG TABLET PO SCH (10:36)
[2020-01-20] MEDS: CARVEDILOL 12.5 MG TABLET PO SCH ×2 (10:37→18:03)
[2020-01-20] MEDS: HYDROCORTISONE 2.5 % RECTAL CREAM 28.35 GM TUBE RC SCH ×3 (10:38→18:08)
[2020-01-20] MEDS: ENTRESTO PO SCH ×2 (13:14→18:03)
--- NOTE | 2020-01-20 14:20 | NUR ---
Pt received, assessed, no acute distress or SOB noted. Pt complaint with medication administration and therapies as offered. Pt provided assistance to Zoom with family. Surgical dressing on L hip dry and intact. No S/S of infection present. VSS. Fall and safety precautions in place. Call light and personal items placed within reach. Will continue to monitor.
[2020-01-20 16:00] VITALS: BP 121/67
--- NOTE | 2020-01-20 19:45 | NUR ---
Awake, alert, sitting at the edge of bed, doing some art craft. No s/s of respiratory distress noted. Denied any pain/discomforts at this time. Safety measures and fall prevention maintained. Continue care as planned.
[2020-01-20 20:11] VITALS: BP 122/68
[2020-01-20] MEDS: DONEPEZIL 10 MG TABLET PO SCH (21:31)
[2020-01-20] MEDS: ATORVASTATIN 10 MG TABLET PO SCH (21:31)
[2020-01-20] MEDS: AMLODIPINE 10 MG TABLET PO SCH (21:31)
[2020-01-21 05:02] VITALS: BP 125/78
--- NOTE | 2020-01-21 06:16 | NUR ---
Shift End Report: Vs stable, Slept god. No complaint presented all night. All needs attended and met. Ambulatory to the bathroom with FWW and standby assist. No fall/injury. No significant event reported all night. Continue current rehab plan of care.
[2020-01-21] MEDS: PANTOPRAZOLE SODIUM 40 MG TABLET.DR PO SCH (06:38)
[2020-01-21 07:30] VITALS: BP 136/78
[2020-01-21] MEDS: CYANOCOBALAMIN 1,000 MCG TABLET PO SCH (08:30)
[2020-01-21] MEDS: SERTRALINE HCL 50 MG TABLET PO SCH (08:31)
[2020-01-21] MEDS: OXYBUTYNIN CHLORIDE 5 MG TABLET PO SCH ×2 (08:31→17:21)
[2020-01-21] MEDS: FOLIC ACID 1 MG TABLET PO SCH (08:32)
[2020-01-21] MEDS: CLOPIDOGREL 75 MG TABLET PO SCH (08:32)
[2020-01-21] MEDS: ASPIRIN EC 81 MG TABLET.DR PO SCH (08:32)
[2020-01-21] MEDS: FAMOTIDINE 20 MG TABLET PO SCH ×2 (08:32→17:19)
[2020-01-21] MEDS: CARVEDILOL 12.5 MG TABLET PO SCH ×2 (08:32→17:00)
[2020-01-21] MEDS: ASCORBIC ACID 500 MG TABLET PO SCH ×2 (08:33→17:19)
[2020-01-21] MEDS: MEMANTINE HCL 10 MG TABLET PO SCH ×2 (08:33→17:21)
[2020-01-21] MEDS: CHOLECALCIFEROL 1,000 UNIT TABLET PO SCH (08:33)
[2020-01-21] MEDS: EZETIMIBE 10 MG TABLET PO SCH (08:33)
[2020-01-21] MEDS: POTASSIUM CHLORIDE 8 MEQ TAB.PRT.SR PO SCH (08:34)
[2020-01-21] MEDS: FUROSEMIDE 20 MG TABLET PO SCH (08:34)
[2020-01-21] MEDS: PYRIDOXINE HCL 100 MG TABLET PO SCH (08:35)
[2020-01-21] MEDS: ENTRESTO PO SCH ×2 (08:35→17:24)
[2020-01-21] MEDS: NABUMETONE 500 MG PO SCH (08:35)
[2020-01-21] MEDS: PRIMIDONE 250 MG TABLET PO SCH ×2 (08:35→20:35)
[2020-01-21] MEDS: HYDROCORTISONE 2.5 % RECTAL CREAM 28.35 GM TUBE RC SCH ×3 (08:36→17:20)
--- NOTE | 2020-01-21 11:44 | NUR ---
Received patient awake in bed. Patient continue getting up from bed. Patient responsive quietly to activity given. Patient no signs/complaint of pain noted. Patient ambulatory BRP with assist. unsteady gait noted. Patient continue fall risk precaution. Continue therapy for increase strenght and therapeutic exercises. not in distress. will continue monitor
--- NOTE | 2020-01-21 15:28 | NUR ---
Patient urine collected for hyperactive bladder as per MD Mustafa.
[2020-01-21 15:31] VITALS: BP 103/53
[2020-01-21 15:46] LABS: *BILIRUBIN,URIN NEGATIVE (NEGATIVE); *BLOOD, URINE NEGATIVE (NEGATIVE); *CLARITY,URINE CLEAR (CLEAR); *COLOR,URINE YELLOW (YELLOW); *KETONES,URINE NEGATIVE (NEGATIVE); *UROBILINOGEN,URINE 0.2 E.U./dl (NORMAL); LEUKOCYTE ESTERASE ,URINE NEGATIVE (NEGATIVE); NITRITE, URINE NEGATIVE (NEGATIVE); UGLUCOSE NEGATIVE (NEGATIVE)
--- NOTE | 2020-01-21 16:41 | NUR ---
Patient UA result negative. aware.
[2020-01-21 20:00] VITALS: BP 104/63
--- NOTE | 2020-01-21 20:04 | NUR ---
Awake, alert, sitting at the edge of bed, doing some craft works. Denied any pain/discomforts. No s/s of respiratory distress. Safety measures and fall prevention maintained. Continue care as planned.
[2020-01-21] MEDS: ATORVASTATIN 10 MG TABLET PO SCH (20:35)
[2020-01-21] MEDS: DONEPEZIL 10 MG TABLET PO SCH (20:35)
[2020-01-21] MEDS: AMLODIPINE 10 MG TABLET PO SCH (20:36)
[2020-01-22] MEDS: PANTOPRAZOLE SODIUM 40 MG TABLET.DR PO SCH (05:33)
[2020-01-22 05:36] VITALS: BP 120/60
--- NOTE | 2020-01-22 06:13 | NUR ---
Shift End Report: Vs stable, Slept good. Ambulatory to the BR with FWWwith minimal assist. No complaint presented all night. All needs attended and met. No fall/injury. No significant event reported all night. Continue current rehab plan of care.
--- NOTE | 2020-01-22 08:04 | NUR ---
Patient in bed sleeping, easily aroused. Vital signs stable. No c/o pain at this time. No acute distress or any SOB noted. safety measures in place and will continue with care.
[2020-01-22 08:42] VITALS: BP 122/73
[2020-01-22] MEDS: CLOPIDOGREL 75 MG TABLET PO SCH (08:59)
[2020-01-22] MEDS: FAMOTIDINE 20 MG TABLET PO SCH ×2 (08:59→17:05)
[2020-01-22] MEDS: CARVEDILOL 12.5 MG TABLET PO SCH ×2 (08:59→16:55)
[2020-01-22] MEDS: OXYBUTYNIN CHLORIDE 5 MG TABLET PO SCH ×2 (08:59→17:05)
[2020-01-22] MEDS: SERTRALINE HCL 50 MG TABLET PO SCH (08:59)
[2020-01-22] MEDS: MEMANTINE HCL 10 MG TABLET PO SCH ×2 (09:00→17:05)
[2020-01-22] MEDS: ASPIRIN EC 81 MG TABLET.DR PO SCH (09:00)
[2020-01-22] MEDS: CYANOCOBALAMIN 1,000 MCG TABLET PO SCH (09:00)
[2020-01-22] MEDS: POTASSIUM CHLORIDE 8 MEQ TAB.PRT.SR PO SCH (09:00)
[2020-01-22] MEDS: FOLIC ACID 1 MG TABLET PO SCH (09:00)
[2020-01-22] MEDS: EZETIMIBE 10 MG TABLET PO SCH (09:01)
[2020-01-22] MEDS: FUROSEMIDE 20 MG TABLET PO SCH (09:01)
[2020-01-22] MEDS: CHOLECALCIFEROL 1,000 UNIT TABLET PO SCH (09:01)
[2020-01-22] MEDS: ASCORBIC ACID 500 MG TABLET PO SCH ×2 (09:01→17:05)
[2020-01-22] MEDS: NABUMETONE 500 MG PO SCH (09:05)
[2020-01-22] MEDS: ENTRESTO PO SCH ×2 (09:05→17:05)
[2020-01-22] MEDS: PYRIDOXINE HCL 100 MG TABLET PO SCH (09:06)
[2020-01-22] MEDS: PRIMIDONE 250 MG TABLET PO SCH ×2 (09:06→21:21)
[2020-01-22] MEDS: HYDROCORTISONE 2.5 % RECTAL CREAM 28.35 GM TUBE RC SCH ×3 (09:10→17:06)
--- NOTE | 2020-01-22 09:23 | NUR ---
Patient took all scheduled meds and tolerated well. left hip surgical site intact and dry and open to air; still with redness discoloration noted. Needs attended and met and will continue with care.
[2020-01-22 16:19] VITALS: BP 106/58
[2020-01-22 19:52] VITALS: BP 105/64
[2020-01-22] MEDS: AMLODIPINE 10 MG TABLET PO SCH (21:20)
[2020-01-22] MEDS: DONEPEZIL 10 MG TABLET PO SCH (21:20)
[2020-01-22] MEDS: ATORVASTATIN 10 MG TABLET PO SCH (21:20)
--- NOTE | 2020-01-22 23:38 | NUR ---
received patient doing craft work. Able to make needs known. No signs and symptoms of distress noted, No SOB noted. Vitals stable. Denied any pain/discomforts. Stables from left hip removed and placed steri strips, picture taken and placed in chart. Safety measures and fall prevention maintained. All due medications administered. Continue care as planned.
[2020-01-23 04:40] VITALS: BP 121/59
--- NOTE | 2020-01-23 06:04 | NUR ---
Slept good through the night. No further complaint presented. No fall/injury. All need attended and met. No significant event reported all night. Continue current rehab plan of care. VS stable.
[2020-01-23] MEDS: PANTOPRAZOLE SODIUM 40 MG TABLET.DR PO SCH (06:13)
[2020-01-23] MEDS: CARVEDILOL 12.5 MG TABLET PO SCH ×2 (09:10→17:00)
[2020-01-23] MEDS: MEMANTINE HCL 10 MG TABLET PO SCH ×2 (09:10→17:30)
[2020-01-23] MEDS: ASPIRIN EC 81 MG TABLET.DR PO SCH (09:10)
[2020-01-23] MEDS: FAMOTIDINE 20 MG TABLET PO SCH ×2 (09:11→17:30)
[2020-01-23] MEDS: FOLIC ACID 1 MG TABLET PO SCH (09:11)
[2020-01-23] MEDS: SERTRALINE HCL 50 MG TABLET PO SCH (09:11)
[2020-01-23] MEDS: CLOPIDOGREL 75 MG TABLET PO SCH (09:11)
[2020-01-23] MEDS: CYANOCOBALAMIN 1,000 MCG TABLET PO SCH (09:11)
[2020-01-23] MEDS: OXYBUTYNIN CHLORIDE 5 MG TABLET PO SCH ×2 (09:12→17:30)
[2020-01-23] MEDS: POTASSIUM CHLORIDE 8 MEQ TAB.PRT.SR PO SCH (09:12)
[2020-01-23] MEDS: FUROSEMIDE 20 MG TABLET PO SCH (09:12)
[2020-01-23] MEDS: CHOLECALCIFEROL 1,000 UNIT TABLET PO SCH (09:12)
[2020-01-23] MEDS: ASCORBIC ACID 500 MG TABLET PO SCH ×2 (09:12→17:30)
[2020-01-23] MEDS: EZETIMIBE 10 MG TABLET PO SCH (09:12)
[2020-01-23] MEDS: NABUMETONE 500 MG PO SCH (09:14)
[2020-01-23] MEDS: PRIMIDONE 250 MG TABLET PO SCH ×2 (09:15→21:03)
[2020-01-23] MEDS: ENTRESTO PO SCH ×2 (09:17→17:30)
[2020-01-23] MEDS: PYRIDOXINE HCL 100 MG TABLET PO SCH (09:23)
[2020-01-23] MEDS: HYDROCORTISONE 2.5 % RECTAL CREAM 28.35 GM TUBE RC SCH ×3 (10:38→17:31)
--- NOTE | 2020-01-23 11:36 | NUR ---
Patient sitting up and doing activities right now, Pt. is AAO x 1, able to express self at times and with gestures. No acute distress noted. Vital signs within pete limit for patient. All due medications administered and tolerated well. Left hip surgical site gary removed and with steri-strips. Incision site intact and dry. Patient was up with PT for physical therapy. Ambulatory with a walker and BRP with stand by assist. Needs attended and met, safety measures in place and will continue with care.
[2020-01-23 15:44] VITALS: BP 101/61
--- NOTE | 2020-01-23 18:29 | NUR ---
NO SOB noted, in stable condition. Needs attended and met and will continue with care.
[2020-01-23 20:12] VITALS: BP 113/68
[2020-01-23] MEDS: ATORVASTATIN 10 MG TABLET PO SCH (21:03)
[2020-01-23] MEDS: DONEPEZIL 10 MG TABLET PO SCH (21:03)
[2020-01-23] MEDS: AMLODIPINE 10 MG TABLET PO SCH (21:03)
--- NOTE | 2020-01-23 21:42 | NUR ---
received patient doing craft work. Able to make needs known. No signs and symptoms of distress noted, No SOB noted. Vitals stable, temp slightly elevated 99.6 cooling measure done, reassessed and temp @ 98.5. Denied any pain/discomforts. left hip steri strips in place and intact. Safety measures and fall prevention maintained. All due medications administered. Continue care as planned.
[2020-01-24 04:21] VITALS: BP 141/13
[2020-01-24] MEDS: PANTOPRAZOLE SODIUM 40 MG TABLET.DR PO SCH (06:01)
--- NOTE | 2020-01-24 06:45 | NUR ---
Slept well through the night. No fall/injury. got up multiple times to use the restroom. All need attended and met. No significant event reported all night. Continue current rehab plan of care. VS stable.
[2020-01-24] MEDS: CHOLECALCIFEROL 1,000 UNIT TABLET PO SCH (08:47)
[2020-01-24] MEDS: CYANOCOBALAMIN 1,000 MCG TABLET PO SCH (08:47)
[2020-01-24] MEDS: POTASSIUM CHLORIDE 8 MEQ TAB.PRT.SR PO SCH (08:48)
[2020-01-24] MEDS: EZETIMIBE 10 MG TABLET PO SCH (08:49)
[2020-01-24] MEDS: PRIMIDONE 250 MG TABLET PO SCH (08:49)
[2020-01-24] MEDS: PYRIDOXINE HCL 100 MG TABLET PO SCH (08:50)
[2020-01-24] MEDS: FOLIC ACID 1 MG TABLET PO SCH (08:50)
[2020-01-24] MEDS: SERTRALINE HCL 50 MG TABLET PO SCH (08:50)
[2020-01-24] MEDS: FAMOTIDINE 20 MG TABLET PO SCH (08:51)
[2020-01-24] MEDS: FUROSEMIDE 20 MG TABLET PO SCH (08:52)
[2020-01-24] MEDS: ASPIRIN EC 81 MG TABLET.DR PO SCH (08:52)
[2020-01-24] MEDS: ENTRESTO PO SCH (08:52)
[2020-01-24] MEDS: ASCORBIC ACID 500 MG TABLET PO SCH (08:52)
[2020-01-24] MEDS: CLOPIDOGREL 75 MG TABLET PO SCH (08:53)
[2020-01-24] MEDS: NABUMETONE 500 MG PO SCH (08:53)
[2020-01-24] MEDS: MEMANTINE HCL 10 MG TABLET PO SCH (08:53)
[2020-01-24] MEDS: OXYBUTYNIN CHLORIDE 5 MG TABLET PO SCH (08:53)
[2020-01-24 08:54] VITALS: BP 137/76
[2020-01-24] MEDS: CARVEDILOL 12.5 MG TABLET PO SCH (08:54)
[2020-01-24] MEDS: HYDROCORTISONE 2.5 % RECTAL CREAM 28.35 GM TUBE RC SCH ×2 (08:54→12:20)
--- NOTE | 2020-01-24 14:14 | NUR ---
Received patient awake in bed. Patient sitting in bed quietly. Patient individual activity tolerated well. Patient compliant with medication. Patient assisted to bathroom. unsteady gait noted. Patient for discharge around 3pm via private car. MD Mustafa and MD Hernandez aware. not in distress. Medication discharge prescription fax to pharmacy. will continue monitor
--- NOTE | 2020-01-24 15:23 | NUR ---
Patient discharge to home with home health care at 230pm via private car in stable condition. Medication list given to caregiver . Laboratories, x-rays and discharge summary in the folder.Fax discharge medication to pharmacy-received. Wound sutures picture in the chart. Addendum: 01/24/20 at 1526 by MARIXA NAVAS RN RN patient chicken picker private car came at 3pm.
== END 2020-01-24 15:00 | disposition home health service (06) | DRG 559 ==
PROVIDERS: ADMIT Physical Medicine & Rehabilitation Pain Medicine; ATTEND Physical Medicine & Rehabilitation Pain Medicine
DX: S72.142D Displaced intertrochanteric fracture of left femur, subsequent encounter for closed fracture with routine healing (principal); E43 Unspecified severe protein-calorie malnutrition; F84.0 Autistic disorder; D68.59 Other primary thrombophilia; W18.30XD Fall on same level, unspecified, subsequent encounter; G40.909 Epilepsy, unspecified, not intractable, without status epilepticus; F03.90 Unspecified dementia, unspecified severity, without behavioral disturbance, psychotic disturbance, mood disturbance, and anxiety; I11.0 Hypertensive heart disease with heart failure; I50.9 Heart failure, unspecified; E78.5 Hyperlipidemia, unspecified; I48.91 Unspecified atrial fibrillation; K21.9 Gastro-esophageal reflux disease without esophagitis; D64.9 Anemia, unspecified; F32.9 Major depressive disorder, single episode, unspecified; F79 Unspecified intellectual disabilities; N32.81 Overactive bladder; R26.9 Unspecified abnormalities of gait and mobility
CPT/HCPCS: 36415; 73502; 82652; 83550; 83735; 84100; 84443; 85025; A4663; A9150